=== PATIENT | male | born 1935 | race Caucasian/White ===

== ENCOUNTER 2018-10-09 12:40 | Emergency (ER) | payer MEDICARE, OTHER ==
[~2018-10-09] VITALS: Ht 157.5 cm; Wt 56.8 kg
[~2018-10-09 12:40] MED LIST: A/B OTIC15 ML; ASPIR 8181 MG PO; BUS5 PO; CARVEDILOL6.25 M1 PO; ENALAPRIL MALEA20 MG PO; FLO4 PO; FOLIC ACID1 MG PO; TEGRETOL200 MG PO
[2018-10-09 15:14] VITALS: BP 119/59
== END 2018-10-09 15:28 | disposition home or self-care (01) ==
LOC: ED 12:40
DX: M54.41 Lumbago with sciatica, right side (principal); S56.991A Other injury of unspecified muscles, fascia and tendons at forearm level, right arm, initial encounter; I10 Essential (primary) hypertension; F41.9 Anxiety disorder, unspecified; W01.0XXA Fall on same level from slipping, tripping and stumbling without subsequent striking against object, initial encounter; Y93.89 Activity, other specified; Y92.89 Other specified places as the place of occurrence of the external cause; Y99.8 Other external cause status
CPT/HCPCS: J1885